=== PATIENT | female | born 1990 | race Caucasian/White ===

== ENCOUNTER 2016-11-02 16:02 | Emergency (ER) | payer MEDICAID ==
[~2016-11-02] VITALS: Ht 172.7 cm; Wt 77.8 kg
[2016-11-02] MEDS ORDERED: [UNRECOGNIZED DRUG - OTHER] PO (16:38)
[2016-11-02] MEDS ORDERED: LEVO125T5 PO (16:38)
[2016-11-02 17:21] LABS: ASPARTATE AMINO TRANSFERASE 10 U/L (15-37); BLOOD UREA NITROGEN 11 mg/dL (7-18)
[2016-11-02 19:02] VITALS: BP 107/63
== END 2016-11-02 19:05 | disposition home or self-care (01) ==
LOC: ED 18:59
DX: N93.8 Other specified abnormal uterine and vaginal bleeding (principal); E03.9 Hypothyroidism, unspecified
CPT/HCPCS: 36415; 76830; 80053; 81003; 84702; 85025; 99285